=== PATIENT | male | born 1950 | race Caucasian/White ===

== ENCOUNTER 2021-02-16 13:56 | Emergency (ER) | payer MEDICARE, SELFPAY ==
[2021-02-16 14:08] VITALS: BP 145/75; PULSE 78; RESP 20; TEMP 36.4; O2SAT 97
[2021-02-16 14:09] VITALS: BP 145/75; PULSE 78; RESP 20; TEMP 36.4; O2SAT 97
--- NOTE | 2021-02-16 14:10 | ED.URI ---
HPI - URI/Sore Throat General Chief Complaint: Upper Respiratory Infection Stated Complaint: Cough,coughing up yellow mucus Source: patient and RN notes reviewed Mode of arrival: ambulatory History of Present Illness HPI Narrative: This is a 70-year-old male who presented to urgent care with complaints of a cough with greenish sputum, fatigue and a runny nose that started on Saturday that has worsened. Patient notes that he had a subjective fever last night. Patient does have a history of having sinus infections. The patient denies SOB, CP, palpitation, extremity numbness, lightheadedness, dizziness, constipation, diarrhea, chills, or fever. MD elicited complaint: fever, cough and rhinorrhea Related Data Home Medications Medication Instructions Recorded Confirmed [id number] 1 tablet PO DAILY 02/16/21 02/16/21 [Adult Multi plus [place]-3] Allergies Allergy/AdvReac Type Severity Reaction Status Date / Time Sulfa (Sulfonamide Allergy Mild Hives Verified 02/16/21 14:25 Antibiotics) Review of Systems Review of Systems: A 14 organ system Review of Systems was performed and pertinent positives included in the HPI, otherwise remaining ROS is negative. [facility] Family History Family History (Updated 02/16/21 @ 14:11 by PABLO Cifuentes-Darrin) Other Family history non-contributory Exam Narrative: GENERAL: This is a well-nourished, well-developed patient, in no apparent distress. HEAD: normocephalic, atraumatic. EYES: PERRL. Sclera clear/white. Vision is grossly intact. EARS: External ears normal, auditory canals clear and without drainage, TMs normal without perforation. Hearing grossly intact. NOSE: External nose normal with no obvious nasal discharge, nares without redness, no rhinorrhea. THROAT: Mucous membranes moist, posterior pharynx clear. NECK: Neck supple, non-tender without lymphadenopathy, masses or thyromegaly. CARDIOVASCULAR: Regular rate and rhythm without murmurs, gallops, or rubs. RESPIRATORY: Clear to auscultation. Breath sounds equal bilaterally. No wheezes, rales, or rhonchi. GASTROINTESTINAL: Abdomen soft, non-tender, nondistended. Bowel sounds are active. No hepato-splenomegaly, or palpable masses. No guarding. SKIN: warm, intact with no suspicious lesions or rash, good texture and turgor. NEURO: awake, alert, and oriented to person, place and time. There were no obvious focal neurologic abnormalities. Steady gait EXTREMITIES: Normal range of motion. No edema. No calf tenderness. Negative Homans sign bilaterally. BACK: Nontender without deformity or crepitance. No flank tenderness. Course Course Emergency Course: Patient diagnosed with cellulitis will go home with antibiotics Augmentin, Tessalon Perles, guaifenesin Vital Signs Vital signs: Vital Signs Temperature 97.5 F L 02/16/21 14:08 Pulse Rate 78 02/16/21 14:08 Respiratory Rate 20 02/16/21 14:08 Blood Pressure 145/75 H 02/16/21 14:08 Pulse Oximetry 97 02/16/21 14:08 Temperature 97.5 F L 02/16/21 14:09 Pulse Rate 78 02/16/21 14:09 Respiratory Rate 20 02/16/21 14:09 Blood Pressure 145/75 H 02/16/21 14:09 Pulse Oximetry 97 02/16/21 14:09 MDM - URI/Sore Throat Differential Diagnosis Differential diagnosis: Likely upper respiratory infection, sinusitis, viral infection and pharyngitis Discharge Plan Discharge Clinical Impression: Sinusitis Qualifiers: Sinusitis location: frontal Chronicity: acute Recurrence: recurrent Qualified Code(s): J01.11 - Acute recurrent frontal sinusitis Patient Disposition: Home, Self-Care Condition: Stable Instructions: Antibiotic Form, Sinusitis (ED) Additional Instructions: What are the symptoms of sinusitis? - Common symptoms of sinusitis include: ?Stuffy or blocked nose ?Thick yellow or green discharge from the nose ?Pain in the teeth ?Pain or pressure in the face - This often feels worse when a person bends forward. People with sinusi
== END 2021-02-16 14:42 | disposition home or self-care (01) ==
PROVIDERS: Emergency Provider Nurse Practitioner
DX: J01.11 Acute recurrent frontal sinusitis (principal)
CPT/HCPCS: 99213; G0463

== ENCOUNTER 2021-06-30 13:13 | Emergency (ER) | payer MEDICARE, SELFPAY ==
[2021-06-30 13:36] VITALS: BP 140/87; PULSE 70; RESP 20; TEMP 37.1; O2SAT 98
--- NOTE | 2021-06-30 13:57 | ED.WOUNDLAC ---
HPI - Wound/Laceration General Chief Complaint: Wound/Laceration Stated Complaint: head injury Time Seen by Provider: 06/30/21 13:16 Source: patient Mode of arrival: ambulatory Limitations: no limitations History of Present Illness HPI narrative: 70-year-old male presents to [facility] for a wound check to the right side of his forehead. Patient reports that he had a mole removed to the area approximately 3 to 4 weeks ago by his surgical brace maker. Patient reports that dissolvable sutures were placed at that time. Patient reports that the wound reopened yesterday when he accidentally [place] his head on [place]. Patient denies loss of conscious, headache, dizziness or blurred vision. Patient reports that his sister who is a nurse cleanse the wound yesterday and placed a butterfly bandage to the area. Patient denies active bleeding to the wound. Patient states that he is up to date on his tetanus vaccine Onset (ago): hour(s) (24) Location: face Place: home Patient tetanus UTD: Yes Associated symptoms: none Related Data Home Medications Medication Instructions Recorded Confirmed loratadine [Claritin] 10 mg PO DAILY 06/30/21 06/30/21 Allergies Allergy/AdvReac Type Severity Reaction Status Date / Time Sulfa (Sulfonamide Allergy Mild Hives Verified 06/30/21 13:30 Antibiotics) Review of Systems Constitutional: Constitutional: Denies chills, Denies fatigue, Denies fever(s) and Denies weakness Eyes: Eyes: Denies change in vision and Denies photophobia Respiratory: Respiratory: Denies cough, Denies dyspnea and Denies wheezing Gastrointestinal: Gastrointestinal: Denies abdominal pain, Denies diarrhea, Denies nausea and Denies vomiting Integumentary/Breasts: Comments: Open wound to right side of forehead Neurologic: Denies vertigo, Denies dizziness and Denies syncope PMFSH Family History Family History Other Family history non-contributory Comments At time of signature, I agree with nursing past medical, surgical, social and family history. There is no relevant family history pertinent to the presenting complaint. Exam Const: General: no acute distress Nutritional Appearance: well nourished Orientation/consciousness: patient oriented x3 Eyes: Conjunctivae: conjunctivae normal Pupils: Equal, round and reactive pupils present EOM: EOMs intact bilaterally Direct Ophthalmoscopy: no photophobia Neck: Neck: normal visual inspection Resp: Effort & Inspection: normal respiratory effort Auscultation: clear to auscultation bilaterally Cardio: Rate: regular rate Rhythm: regular rhythm Skin: General skin exam: normal color Rashes: no rashes Other: 2 cm superficial vertical laceration noted to right side of forehead. Wound edges well approximated. There is no gaping wound, bleeding, bruising or necrotic tissue noted. Neuro: General: patient oriented x3 and moves all extremities Speech: normal speech Extrem: General: normal to inspection Psych: Mental Status: mental status grossly normal Affect: normal affect Attitude: cooperative Thought content: Yes Normal thought content present Course Course Level of Care: Express Care Visit Vital Signs Vital signs: Vital Signs Temperature 37.1 C 06/30/21 13:36 Pulse Rate 70 06/30/21 13:36 Respiratory Rate 20 06/30/21 13:36 Blood Pressure 140/87 06/30/21 13:36 Pulse Oximetry 98 06/30/21 13:36 Temperature 37.1 C 06/30/21 13:36 Pulse Rate 70 06/30/21 13:36 Respiratory Rate 20 06/30/21 13:36 Blood Pressure 140/87 06/30/21 13:36 Pulse Oximetry 98 06/30/21 13:36 Procedures Laceration Laceration 1: Date: 06/30/21 Time: 14:02 Site: other (Forehead) Side (If applicable): right Size (cm): 2 Description: linear and other (Multiple) Depth: simple, single layer Pre-repair: other (Wound was cleansed
== END 2021-06-30 14:06 | disposition home or self-care (01) ==
PROVIDERS: Emergency Provider Nurse Practitioner Family
DX: S01.81XA Laceration without foreign body of other part of head, initial encounter (principal); W22.8XXA Striking against or struck by other objects, initial encounter
CPT/HCPCS: 12011; 99212; G0463

== ENCOUNTER 2021-11-25 14:44 | Emergency (ER) | payer MEDICARE, SELFPAY ==
[2021-11-25 14:54] VITALS: BP 145/87; PULSE 81; RESP 18; TEMP 37.3; O2SAT 99
--- NOTE | 2021-11-25 15:25 | ED.GENADULT ---
HPI - General Adult General Chief complaint: Upper Respiratory Infection Stated complaint: nasal drainage History of Present Illness HPI narrative: Patient is a 71-year-old male who presents to the [facility] via [facility] for evaluation of upper respiratory symptoms that have been present for approximately 2 weeks. Additionally, patient reports rhinorrhea, productive cough, sweats, and chills. Sputum production and rhinorrhea is clear in color. Denies known exposure or sick contacts. Patient reports he has been taking codeine with guaifenesin that was prescribed to him approximately 5 years ago. This medication provides minimal to no relief. Long history of cigarette smoking. Patient quit smoking cigarettes 2 years ago. He is fully vaccinated against COVID Related Data Allergies Allergy/AdvReac Type Severity Reaction Status Date / Time Sulfa (Sulfonamide Allergy Mild Hives Verified 11/25/21 15:04 Antibiotics) Review of Systems Review of Systems: Denies history of COPD, bronchitis, asthma, and pneumonia. Denies current/past tobacco use. Pertinent negatives: fever, sweats, chills, change in appetite, fatigue, skin color changes, headache, nasal congestion, dizziness, lymphadenopathy, sinus problems, ear pain/drainage, chest pain, heart murmurs, heart palpitations, shortness of breath, wheezing, cyanosis, hemoptysis, hoarseness, orthopnea, pleuritic pain, nausea, vomiting, diarrhea, and myalgias. PMFSH Past Medical History Medical History Cough Family History Family History Other Family history non-contributory Comments I have reviewed and agree with the patient's past medical, surgical, social, and family hx as documented by the RN. There is no relevant family history pertinent to the presenting complaint. Exam Narrative: GENERAL: Well-appearing, well-nourished, and in no acute distress. HEAD: Normocephalic, atraumatic. No sinus tenderness or facial swelling appreciated. EYES: PERRLA and EOMI. No evidence of erythema, swelling, or drainage. ENT: Bilateral external ears and ear canals normal. Bilateral TMs are normal.No TM perforation. Nares clear, no rhinorrhea or epistaxis. Bilateral turbinates without erythema/ swelling. Mucous membranes moist and pink. Uvula is midline without erythema and swelling. No evidence of petechial rash, cobblestoning, lesions, ulcers, erythema, swelling, exudates, peritonsillar abscess, tenting, or drooling. Breath odor and voice normal. NECK: Supple. No Lymphadenopathy or nuchal rigidity appreciated. CHEST: Bilateral lung zavala are clear to auscultation. No respiratory distress. No evidence of pleuritic cp upon examination. Moderate wet cough appreciated on examination. HEART: Regular rate and rhythm. No murmur, gallop, or rub heard. EXTREMITIES: Normal range of motion. No edema. SKIN: Warm, dry, no rash. NEURO: No focal deficits. Alert and oriented x3. Course Course Emergency Course: The patient/guardian displays adequate decision making capability and despite a detailed discussion of alternatives, benefits, risks, and consequences refuses chest x-ray Level of Care: Express Care Visit Vital Signs Vital signs: Vital Signs Temperature 99.2 F 11/25/21 14:54 Pulse Rate 81 11/25/21 14:54 Respiratory Rate 18 11/25/21 14:54 Blood Pressure 145/87 H 11/25/21 14:54 Pulse Oximetry 99 11/25/21 14:54 Oxygen Delivery Room Air 11/25/21 14:54 Temperature 99.2 F 11/25/21 14:54 Pulse Rate 81 11/25/21 14:54 Respiratory Rate 18 11/25/21 14:54 Blood Pressure 145/87 H 11/25/21 14:54 Pulse Oximetry 99 11/25/21 14:54 Oxygen Delivery Room Air 11/25/21 14:54 Medical Decision Making Differential Diagnosis Differential Diagnosis: Allergic rhinitis, ABRS, acute viral sinusitis, strep pharyngitis, nasopharyngitis, bronchitis,
== END 2021-11-25 15:30 | disposition home or self-care (01) ==
PROVIDERS: Emergency Provider Nurse Practitioner Family
DX: R05.9 Cough, unspecified (principal); Z87.891 Personal history of nicotine dependence
CPT/HCPCS: 99213; G0463

== ENCOUNTER 2022-04-04 13:37 | Emergency (ER) | payer MEDICARE, SELFPAY ==
[2022-04-04 13:49] VITALS: BP 141/85; PULSE 66; RESP 18; TEMP 36.8; O2SAT 98
--- NOTE | 2022-04-04 14:21 | ED.URI ---
HPI - URI/Sore Throat General Chief Complaint: Upper Respiratory Infection Stated Complaint: cough,nasal drainage Time Seen by Provider: 04/04/22 14:21 Source: patient Mode of arrival: ambulatory Limitations: no limitations History of Present Illness HPI Narrative: 71-year-old male presents with complaint of continued fatigue. Has been sick for approximately 1 week. Also reports that he still having some congestion. Afebrile. No cough, chest pain or shortness of breath. Is not taking [id number] medications to treat his congestion. States that he just cannot get his energy back. Denies nausea vomiting diarrhea. All systems reviewed and negative except as noted above. Related Data Allergies Allergy/AdvReac Type Severity Reaction Status Date / Time Sulfa (Sulfonamide Allergy Mild Hives Verified 04/04/22 13:54 Antibiotics) Review of Systems Review of Systems: CONSTITUTIONAL: Denies fever, chills, or sweats. EYES: Denies visual changes, redness, or discharge. ENT: Reports rhinorrhea, congestion. Denies sore throat, or otalgia. CARDIOVASCULAR: Denies chest pain, palpitations, or edema. RESPIRATORY: Denies cough or dyspnea. GASTROINTESTINAL: Denies abdominal pain, nausea, vomiting, or diarrhea. GENITOURINARY: Denies dysuria or hematuria. SKIN: Denies rash or itching. MUSCULOSKELETAL: Denies back pain, joint pain, or myalgia. NEUROLOGIC: Denies headache, numbness, or weakness. PSYCHIATRIC: Denies anxiety or depression. All other systems reviewed are negative, except as documented in HPI. [facility] Past Medical History Medical History Cough Family History Family History Other Family history non-contributory Comments At time of signature, agree with nursing past medical, surgical, social and family history. There is no relevant family history pertinent to the presenting complaint. Exam Narrative: GENERAL: This is a well-nourished, well-developed patient, in no apparent distress. HEAD: normocephalic, atraumatic. EYES: PERRL. Sclera clear/white. Vision is grossly intact. EARS: External ears normal, auditory canals clear and without drainage, TMs normal without perforation. Hearing grossly intact. NOSE: External nose normal with clear nasal drainage, erythema to nares. No sinus tenderness. THROAT: Mucous membranes moist, posterior pharynx clear. NECK: Neck supple, non-tender without lymphadenopathy, masses or thyromegaly. CARDIOVASCULAR: Regular rate and rhythm without murmurs, gallops, or rubs. RESPIRATORY: Clear to auscultation. Breath sounds equal bilaterally. No wheezes, rales, or rhonchi. SKIN: warm, Dry, intact with no suspicious lesions or rash, good texture and turgor. NEURO: awake, alert, and oriented to person, place and time. There were no obvious focal neurologic abnormalities. EXTREMITIES: No joint tenderness, effusion, or edema noted. Course Course Level of Care: Express Care Visit Vital Signs Vital signs: Vital Signs Temperature 36.8 C 04/04/22 13:49 Pulse Rate 66 04/04/22 13:49 Respiratory Rate 18 04/04/22 13:49 Blood Pressure 141/85 H 04/04/22 13:49 Pulse Oximetry 98 04/04/22 13:49 Oxygen Delivery Room Air 04/04/22 13:49 Temperature 36.8 C 04/04/22 13:49 Pulse Rate 66 04/04/22 13:49 Respiratory Rate 18 04/04/22 13:49 Blood Pressure 141/85 H 04/04/22 13:49 Pulse Oximetry 98 04/04/22 13:49 Oxygen Delivery Room Air 04/04/22 13:49 Reviewed MDM - URI/Sore Throat MDM Narrative Medical decision making narrative: Patient is aware of diagnosis, understands and agrees to treatment plan. Anticipatory guidance given. Patient agrees to follow-up as directed and is aware of reasons to seek care at the emergency department. Portions of this record may have been created with voice recognition software Lab Data Labs:
== END 2022-04-04 14:31 | disposition home or self-care (01) ==
PROVIDERS: Emergency Provider Nurse Practitioner Family
DX: J10.1 Influenza due to other identified influenza virus with other respiratory manifestations (principal)
CPT/HCPCS: 87804; 99213; G0463

== ENCOUNTER 2022-08-31 10:14 | Emergency (ER) | payer MEDICARE, SELFPAY ==
[2022-08-31 10:26] VITALS: BP 146/84; PULSE 70; RESP 16; TEMP 36.4; O2SAT 100
--- NOTE | 2022-09-03 19:27 | ED.GENADULT ---
HPI - General Adult General Chief complaint: Unspecified Stated complaint: neck stiffness,scalp irritation Time Seen by Provider: 08/31/22 10:30 Source: patient Mode of arrival: ambulatory Limitations: no limitations History of Present Illness HPI narrative: 72-year-old male presents with complaint of pain, rash to scalp. States that he he also has a stiff neck to right side. Reports the pain travels from the right side of scalp in to right neck. Also reports right ear pain. Afebrile. Symptoms for approximately 5-6 days. Progressively worse. All systems reviewed and negative except as noted above. Related Data Home Medications Medication Instructions Recorded Confirmed pantoprazole 40 mg tablet,delayed 40 mg PO DAILY 08/31/22 08/31/22 release Allergies Allergy/AdvReac Type Severity Reaction Status Date / Time Sulfa (Sulfonamide Allergy Mild Hives Verified 08/31/22 10:39 Antibiotics) Review of Systems Review of Systems: CONSTITUTIONAL: Denies fever, chills, or sweats. EYES: Denies visual changes, redness, or discharge. ENT: Denies rhinorrhea, congestion, sore throat, or otalgia. CARDIOVASCULAR: Denies chest pain, palpitations, or edema. RESPIRATORY: Denies cough or dyspnea. GASTROINTESTINAL: Denies abdominal pain, nausea, vomiting, or diarrhea. GENITOURINARY: Denies dysuria or hematuria. SKIN: Reports rash, pain to right scalp. MUSCULOSKELETAL: Denies back pain, joint pain, or myalgia. reports right-sided stiff neck. NEUROLOGIC: Denies headache, numbness, or weakness. PSYCHIATRIC: Denies anxiety or depression. All other systems reviewed are negative, except as documented in HPI. PMFSH Past Medical History Medical History Cough Family History Family History Other Family history non-contributory Comments At time of signature, agree with nursing past medical, surgical, social and family history. There is no relevant family history pertinent to the presenting complaint. Exam Narrative: GENERAL: This is a well-nourished, well-developed patient, in no apparent distress. HEAD: normocephalic, atraumatic. EYES: PERRL. Sclera clear/white. Vision is grossly intact. EARS: Erythematous vesicular rash to right ear lobe, auditory canals clear and without drainage, TMs normal without perforation. Hearing grossly intact. NOSE: External nose normal with no obvious nasal discharge, nares without redness, no rhinorrhea. THROAT: Mucous membranes moist, posterior pharynx clear. NECK: Neck supple, non-tender without lymphadenopathy, masses or thyromegaly. CARDIOVASCULAR: Regular rate and rhythm without murmurs, gallops, or rubs. RESPIRATORY: Clear to auscultation. Breath sounds equal bilaterally. No wheezes, rales, or rhonchi. SKIN: warm, Dry, intact with, good texture and turgor. Erythematous vesicular lesions to right side of scalp at the crown occiput and temporal area extending to right ear and right side of patient's neck. NEURO: awake, alert, and oriented to person, place and time. There were no obvious focal neurologic abnormalities. EXTREMITIES: No joint tenderness, effusion, or edema noted. Course Course Level of Care: Express Care Visit Vital Signs Vital signs: Vital Signs Temperature 36.4 C L 08/31/22 10:26 Pulse Rate 70 08/31/22 10:26 Respiratory Rate 16 08/31/22 10:26 Blood Pressure 146/84 H 08/31/22 10:26 Pulse Oximetry 100 08/31/22 10:26 Oxygen Delivery Room Air 08/31/22 10:26 Temperature 36.4 C L 08/31/22 10:26 Pulse Rate 70 08/31/22 10:26 Respiratory Rate 16 08/31/22 10:26 Blood Pressure 146/84 H 08/31/22 10:26 Pulse Oximetry 100 08/31/22 10:26 Oxygen Delivery Room Air 08/31/22 10:26 Reviewed Medical Decision Making MDM Narrative Medical decision making narrative: Patient is aware of diagnosis, unde
== END 2022-08-31 10:41 | disposition home or self-care (01) ==
PROVIDERS: Emergency Provider Nurse Practitioner Family; PCP Nurse Practitioner Family
DX: R21 Rash and other nonspecific skin eruption (principal); B02.9 Zoster without complications
CPT/HCPCS: 99213; G0463

== ENCOUNTER 2022-09-13 15:44 | Emergency (ER) | payer MEDICARE, SELFPAY ==
--- NOTE | 2022-09-13 15:49 | ED.URI ---
HPI - URI/Sore Throat General Chief Complaint: Upper Respiratory Infection Stated Complaint: Cough,Sore Throat,Pain Back of Head,Rash Time Seen by Provider: 09/13/22 16:00 Source: patient and RN notes reviewed Mode of arrival: ambulatory Limitations: no limitations History of Present Illness HPI Narrative: 72-year-old male presents with concern for 10 day history of nasal congestion, postnasal drip, cough, ear fullness. He reports he also has shingles that he wants checked, reports he was diagnosed MD elicited complaint: sore throat, rhinorrhea and nasal congestion Related Data Home Medications Medication Instructions Recorded Confirmed pantoprazole 40 mg tablet,delayed 40 mg PO DAILY 08/31/22 09/13/22 release Allergies Allergy/AdvReac Type Severity Reaction Status Date / Time Sulfa (Sulfonamide Allergy Mild Hives Verified 09/13/22 16:02 Antibiotics) Review of Systems Review of Systems: CONSTITUTIONAL: Denies malaise, chills, sweats, or fever. EYES: Denies visual changes, redness, or discharge. ENT: Reports rhinorrhea, congestion, otalgia and sore throat. CARDIOVASCULAR: Denies chest pain, palpitations, or edema. RESPIRATORY: Reports cough. Denies dyspnea. GASTROINTESTINAL: Denies abdominal pain, nausea, vomiting, diarrhea SKIN: Reports shingles rash MUSCULOSKELETAL: Denies myalgia. NEUROLOGIC: Denies headache. All systems reviewed & are unremarkable except as noted in HPI and below PMFSH Past Medical History Medical History Cough Family History Family History Other Family history non-contributory Comments At time of signature, agree with nursing past medical, surgical, social and family history. There is no relevant family history pertinent to the presenting complaint Exam Narrative: GENERAL: Well-appearing, well-nourished, and in no acute distress. HEAD: Normocephalic EYES: PERRLA, conjunctivae clear ENT: Nares clear, turbinates edematous and erythematous. Mucous membranes moist. TM pearly cosme with dull light reflex bilaterally; no tragal tenderness. Oropharynx not erythematous without lesions. Tonsils not enlarged and without exudate, no drooling, no hoarseness, no trismus, uvula midline. NECK: Supple. No lymphadenopathy CHEST: Clear to auscultation, breath sounds equal. No wheezing, rhonchi, rales, or stridor. No respiratory distress, speaks in full sentences. HEART: Regular rate and rhythm. No murmur heard. SKIN: Warm, dry healing zoster from rash noted to the neck without surrounding erythema, edema, induration, drainage NEURO: Alert and oriented x3. PSYCH: Normal mood and affect Course Course Emergency Course: Patient is aware of diagnosis, understands and agrees to treatment plan. Anticipatory guidance given. Patient agrees to follow-up as directed and is aware of reasons to seek care at the emergency department. Portions of this record may have been created with voice recognition software Level of Care: Express Care Visit Vital Signs Vital signs: Reviewed. MDM - URI/Sore Throat MDM Narrative Medical decision making narrative: Differential diagnosis considered: [place] virus, strep pharyngitis, allergic rhinitis, upper respiratory tract infection, sinusitis, rhinosinusitis, nasopharyngitis. viral pharyngitis, otitis media, otitis externa, pneumonia, bronchitis, viral cough syndrome, viral syndrome, and influenza. Exam findings show no acute concerns or changes; patient is non-toxic appearing and is in no distress. Patient is appropriate for outpatient treatment and follow-up. Lab Data Attestation: I reviewed the patient's lab results. Critical Care Time Critical Care Time Critical Care Time: No Discharge Plan Discharge Clinical Impression: Acute bacterial sinusitis Patient Disposition: Home, Self-Care Condition: Stable Instructions: Anti
[2022-09-13 15:52] VITALS: BP 143/74; PULSE 71; RESP 18; TEMP 36.8; O2SAT 99
== END 2022-09-13 16:20 | disposition home or self-care (01) ==
PROVIDERS: Emergency Provider Nurse Practitioner; PCP Nurse Practitioner Family
DX: J01.90 Acute sinusitis, unspecified (principal); Z87.891 Personal history of nicotine dependence
CPT/HCPCS: 99213; G0463